=== PATIENT | male | born 1955 | race Caucasian/White ===

== ENCOUNTER 2019-03-10 13:01 | Inpatient (IN) ==
[2019-03-10 13:26] LABS: POC Blood Urea Nitrogen 77 mg/dl (8-23); POC CO2 20 mmol/L (22-30); POC Calcium, Ionized 1.19 mmol/L (1.16-1.32); POC Chloride 104 mmol/L (96-108); POC Creatinine 2.1 mg/dl (0.7-1.2); POC Glucose, Random 251 mg/dL (70-105); POC Potassium 4.7 mmol/L (3.3-5.1); POC Sodium 135 mmol/L (133-145)
[2019-03-10] MEDS ORDERED: 0.9 % SODIUM CHLORIDE 1,000 ML IV ONE (13:35)
--- NOTE | 2019-03-10 13:36 | Emergency Department Note ---
Weakness HPI - General Chief complaint: Weakness Stated complaint: acute renal failure, not feeling well, mild SOB Time Seen by Provider: 03/10/19 13:04 Source: patient Mode of arrival: ambulatory Limitations: no limitations - History of Present Illness HPI Narrative: 63-year-old male referred over by Dr. Garcia for increased weakness over the past 2 weeks. He was most concerned about the kidney function he had tried to call nephrology but they were apparently out at lunch but he would like to have this patient evaluated and consulted by the mechanotherapist. He had done some blood work today and today the creatinine has increased up to 1.9 and he has had a splenic replacement 2 weeks ago at [facility] patient states that since that time he is continued to have weakness had increased even as of yesterday. He was seen at the clinic and Dr. Mcdonough had ordered a CBC the CHEM panel and brought him over for evaluation because of the rising creatinine. Patient has had no syncope episodes. She denies any chest pain although he states he has had continued heaviness over the past several weeks. Patient has had a history of stents in the past as well as a CABG procedure. Patient continues smoking. He has not been back to see the lock and dam operator who put the pacemaker in did see his primary care provider today who brought him over for further evaluation. Chest x-ray was performed which was read as negative by Dr. Roblero the CBC showed 9300 with a hemoglobin of 14.8 hematocrit of 44.4 BUN was elevated at 72 the creatinine 1.9 sodium is 134 and a potassium 5.0 liver function test are normal CO2 is 21Temperature 97.5 the pulse is 60 the respirations are 18 blood pressure 110/60 pulse ox is reading at 96% on room air he states he has a 0/10 pain his Accu-Chek is 228 - Related Data Home Medications Medication Instructions Recorded Confirmed glucometer test strips NOTAPPLIC 04/05/15 03/10/19 aspirin 81 mg tablet,delayed 81 mg PO QDAY 05/27/16 03/10/19 release clopidogrel 75 mg tablet 75 mg PO QDAY 03/03/18 03/10/19 spironolactone 25 mg tablet 25 mg PO QDAY tab 02/19/19 03/10/19 insulin aspart (U-100) 100 unit/mL 10 unit SUB-Q TID ml 03/10/19 03/10/19 (3 mL) subcutaneous pen Previous Rx's Medication Instructions Recorded bisoprolol fumarate 5 mg tablet 10 mg PO QDAY #120 tab 08/15/16 nitroglycerin 0.4 mg sublingual 0.4 mg SUBLINGUAL Q5MIN PRN #100 08/15/16 tablet tab lisinopril 20 mg tablet 20 mg PO QDAY #120 tab 06/27/17 glucagon (human recombinant) 1 mg 1 mg SUB-Q ONCE PRN #1 each 07/14/17 injection kit pen needle, diabetic 32 gauge x See Dose Instructions .ROUTE 07/14/17" .MEDSUPPLY #30 each albuterol sulfate HFA 90 2 puff INHALATION .Q4-6H PRN #8.5 g 12/03/17 mcg/actuation aerosol inhaler atorvastatin 80 mg tablet 80 mg PO QDAY #90 tab 03/09/18 furosemide 40 mg tablet 40 mg PO QDAY #60 tab 05/01/18 ezetimibe 10 mg tablet 10 mg PO QDAY #30 tab 06/04/18 clonazepam 1 mg tablet 1 mg PO BID PRN #45 tab 12/08/18 insulin glargine (U-100) 100 30 unit SUB-Q QDAY #15 ml 02/17/19 unit/mL (3 mL) subcutaneous pen cholecalciferol (vitamin D3) 2,000 2,000 unit PO QDAY #90 cap 02/19/19 unit capsule buspirone 5 mg tablet 5 mg PO BID #60 tab 03/10/19 Allergies Allergy/AdvReac Type Severity Reaction Status Date / Time No Known Drug Allergies Allergy Verified 03/10/19 13:05 Review of Systems All systems ED: reviewed and negative except as stated. Constitutional: Denies: fever, chills Cardiovascular: Denies: chest pain Respiratory: Reports: as per HPI Gastrointestinal: Denies: abdominal pain Genitourinary: Denies: dysuria, frequency Musculoskeletal: Denies: back pain Integumentary: Denies: rash, lesions Neurological: Reports: weakness. Denies: headache Endocrine: Reports: fatigue Past Medical History - Past Medical History PMF Narrative: All Active Problems (Last Reviewed 03/10/19 @ 07:57 by Aaron Anderson MD, FAAFP) Needs smoking cessation education (Acute) Chronic pancreatitis (Acute) Carotid artery disease (Acute) PVD (peripheral vascular disease) (Acute) CHF (congestive heart failure) (Acute) Gastroesophageal reflux disease (Chronic) Abdominal pain (Chronic) Generalized anxiety disorder (Chronic) Lymphocytic-plasmacytic colitis (Chronic) Acute gastroenteritis (Chronic) Hypercholesteremia (Chronic 11/20/11) Hyperlipidemia (Chronic) Hypertension (Chronic) Insomnia (Chronic) Myocardial infarction acute (Chronic) Myocardial infarction, old (Chronic) History of noncompliance with medical treatment (Chronic 08/05/13) Diabetes mellitus, type II (Chronic) Depressive disorder (Chronic) Pain, dental (Chronic) Chronic obstructive pulmonary disease (Chronic) Chest pain (Chronic) CAD (coronary artery disease) (Chronic) BPH without urinary obstruction (Chronic) Abnormal electrocardiogram (Chronic) Osteoarthritis (Chronic) Tobacco abuse (Chronic 10/28/11) History of coronary artery stent placement (Chronic) History of colonoscopy (Chronic 07/26/15) Hx of coronary artery bypass graft (Chronic) ST elevation myocardial infarction (STEMI) involving left circumflex coronary artery with complication (Chronic) Past Surgical History (Last Reviewed 03/10/19 @ 07:57 by Aaron Anderson MD, FAAFP) History of coronary artery stent placement (Chronic) History of colonoscopy (Chronic 07/26/15) Hx of coronary artery bypass graft (Chronic) Family History (Last Reviewed 03/10/19 @ 07:57 by Aaron Anderson MD, FAAFP) Mother Alzheimer's disease Malignant neoplasm of breast Glaucoma Osteoarthritis Brother Diabetes mellitus Acute myocardial infarction Cardiac disease Essential hypertension Sister Diabetes mellitus Father/49 Acute myocardial infarction Medical history: Reports: arthritis, COPD, CAD (coronary artery disease), DM, hyperlipidemia, hypertension, other Surgical history ED: Reports: coronary bypass (CABG) - Social History smoking status: Current some day smoker Alcohol use: Reports: None Drug use: Reports: marijuana Physical Exam Limitations: no limitations General appearance: alert Head: atraumatic, normocephalic Eye: Present: normal appearance ENT: normal exam, normal oropharynx, mucous membranes moist Neck: Present: normal inspection, full ROM Chest: Present: normal inspection, symmetric chest wall rise. Absent: tenderness Respiratory: Present: normal lung sounds bilaterally. Absent: respiratory distress, rales/crackles, wheezes Cardiovascular: Present: regular rate, normal rhythm. Absent: bradycardia, tachycardia Abdominal: Present: soft, distention, normal bowel sounds. Absent: tenderness, guarding, rebound, rigidity Extremities: Present: normal inspection, full ROM Back: Present: normal inspection, full ROM. Absent: tenderness Patient oriented to: Present: person, place, time Speech: Present: fluid speech Cranial nerves: EOM function (II, III, IV, ): Normal, facial sensation (V): Normal, facial palsy (VII): Normal, gag reflex (IX): Normal, spinal accessory function (XI): Normal, tongue deviation (XII): Normal Cerebellar function: normal gait Motor strength - LUE: 5/5 Motor strength - RUE: 5/5 Motor strength - LLE: 5/5 Motor strength - RLE: 5/5 Upper motor neuron exam: Babinski sign: Absent bilaterally Sensory exam upper extremity: Normal: light touch Sensory exam lower extremity: Normal: light touch DTR: 2+: patellar (L), patellar (R) Coma Scale Eye Opening: Spontaneous Coma Scale Motor Response: Obeys Commands Coma Scale Verbal Response: Oriented Coma Scale Total: 15 Course Vital Signs Temperature 97.5 F 03/10/19 13:02 Pulse Rate 60 03/10/19 13:02 Respiratory Rate 18 03/10/19 13:02 Blood Pressure 100/62 03/10/19 13:02 Pulse Oximetry (%) 96 03/10/19 13:02 Temperature 97.5 F 03/10/19 13:02 Pulse Rate 54 L 03/10/19 15:16 Respiratory Rate 20 03/10/19 15:16 Blood Pressure 72/44 03/10/19 15:16 Pulse Oximetry (%) 96 03/10/19 15:16 Weakness - MDM Narrative Medical decision making narrative: Is 8200 to hemoglobin 15.0 hematocrit of 45.0 lactic acid is 0.8 sodium is 135 the potassium 4.7 the CO2 is 20 the BUN is 77 the creatinine 2.1 glucose is 254 troponin less than 0.01 BNP is 395Dr David, neurologist has been contacted at [phone] and he will consult on the patient. Dr. Anderson attempted to contact mechanotherapist but was unavailable at that particular time. He recommended that we asked with the consult after the patient is admitted to the hospitalist.Patient given some IV fluids as his pressure did drop down to the 97 systolic region. His chest x-ray no CHf.Records indicate that a renal ultrasound was performed on 03/03/[address] mass [address] Dr Blake contacted and pt to be admitted - Lab Data Result diagrams: 03/10/19 13:17 03/10/19 13:17 Lab Results 03/10/19 03/10/19 03/10/19 Range/Units 13:17 13:17 13:17 WBC 8.2 (4.5-11.0) K/mcL RBC 4.90 (4.50-5.90) M/mcL Hgb 15.0 (13.5-16.5) g/dL Hct 45.0 (41.0-55.0) % POC Hct 44.0 (41.0-55.0) % MCV 91.8 (80.0-100.0) fL MCH 30.7 (26.0-34.0) pg MCHC 33.4 (31.0-36.0) g/dL RDW 13.4 (11.5-14.5) % Plt Count 155 (140-440) K/mcL MPV 9.4 (7.4-10.4) fL Gran % 54.8 (38.0-78.0) % Lymph % (Auto) 31.4 (15.5-49.0) % [place] % (Auto) 10.3 (1.0-12.0) % Eos % (Auto) 3.0 (0.0-7.0) % Baso % (Auto) 0.5 (0.0-2.0) % Gran # 4.5 (1.8-8.0) K/mcL Lymph # (Auto) 2.6 (1.5-4.8) K/mcL [place] # (Auto) 0.8 (0.1-0.9) K/mcL Eos # (Auto) 0.2 (0.0-0.7) K/mcL Baso # (Auto) 0 (0.0-0.3) K/mcL VBG Lactic Acid (0.5-2.0) mmol/L POC Sodium 135 (133-145) mmol/L Sodium 135 (133-145) mmol/L POC Potassium 4.7 (3.3-5.1) mmol/L Potassium 4.7 (3.3-5.1) mmol/L POC Chloride 104 (96-108) mmol/L Chloride 100 (96-108) mmol/L Carbon Dioxide 18 L (22-30) mmol/L POC Total CO2 20 L (22-30) mmol/L Anion Gap 17.0 H (8-16) POC BUN 77 H (8-23) mg/dl BUN 73 H (8-23) mg/dl Creatinine 2.1 H (0.7-1.2) mg/dl POC Creatinine 2.1 H (0.7-1.2) mg/dl GFR Calculation 33 Glucose 254 H (70-105) mg/dL POC Glucose 251 H (70-105) mg/dL Calcium 9.7 (8.6-10.4) mg/dl POC WB Ioniz Calcium 1.19 (1.16-1.32) mmol/L Total Bilirubin 0.4 (0.0-1.0) mg/dL AST 14 (0-37) U/l ALT 23 (0-40) U/l Alkaline Phosphatase 109 (39-117) U/L Total Creatine Kinase 45 (24-195) IU/L CK-MB (CK-2) 2.5 (0-4.9) ng/ml Myoglobin 33 (28-72) ng/ml Troponin T < 0.01 (0-0.03) ng/ml NT-Pro-B Natriuret Pep (0-125) pg/ml Total Protein 7.2 (5.9-8.4) gm/dL Albumin 4.3 (3.2-5.2) gm/dL Globulin 2.9 (2.2-3.7) gm/dL Albumin/Globulin Ratio 1.5 (1.0-2.3) Urine Color Urine Appearance Urine pH (5.0-9.0) Ur Specific [place] (1.000-1.035) Urine Protein (NEG) mg/dL Urine Glucose (UA) (NEG) mg/dL Urine Ketones (NEG) mg/dL Urine Occult Blood (<0.03) mg/dL Urine Nitrate (NEG) Urine Bilirubin (NEG) mg/dL Urine Urobilinogen (NEG) mg/dL Ur Leukocyte Esterase (NEG) /uL Urine RBC (0-1) /hpf Urine WBC (0-4) /hpf Ur Squamous Epith Cells (0-4) /hpf Urine Bacteria (0) /hpf Hyaline Casts (0-2) /lpf Urine Mucus (0) /hpf Ur Culture Indicated? 03/10/19 03/10/19 03/10/19 Range/Units 13:17 13:37 14:11 WBC (4.5-11.0) K/mcL RBC (4.50-5.90) M/mcL Hgb (13.5-16.5) g/dL Hct (41.0-55.0) % POC Hct (41.0-55.0) % MCV (80.0-100.0) fL MCH (26.0-34.0) pg MCHC (31.0-36.0) g/dL RDW (11.5-14.5) % Plt Count (140-440) K/mcL MPV (7.4-10.4) fL Gran % (38.0-78.0) % Lymph % (Auto) (15.5-49.0) % [place] % (Auto) (1.0-12.0) % Eos % (Auto) (0.0-7.0) % Baso % (Auto) (0.0-2.0) % Gran # (1.8-8.0) K/mcL Lymph # (Auto) (1.5-4.8) K/mcL [place] # (Auto) (0.1-0.9) K/mcL Eos # (Auto) (0.0-0.7) K/mcL Baso # (Auto) (0.0-0.3) K/mcL VBG Lactic Acid 0.8 (0.5-2.0) mmol/L POC Sodium (133-145) mmol/L Sodium (133-145) mmol/L POC Potassium (3.3-5.1) mmol/L Potassium (3.3-5.1) mmol/L POC Chloride (96-108) mmol/L Chloride (96-108) mmol/L Carbon Dioxide (22-30) mmol/L POC Total CO2 (22-30) mmol/L Anion Gap (8-16) POC BUN (8-23) mg/dl BUN (8-23) mg/dl Creatinine (0.7-1.2) mg/dl POC Creatinine (0.7-1.2) mg/dl GFR Calculation Glucose (70-105) mg/dL POC Glucose (70-105) mg/dL Calcium (8.6-10.4) mg/dl POC WB Ioniz Calcium (1.16-1.32) mmol/L Total Bilirubin (0.0-1.0) mg/dL AST (0-37) U/l ALT (0-40) U/l Alkaline Phosphatase (39-117) U/L Total Creatine Kinase (24-195) IU/L CK-MB (CK-2) (0-4.9) ng/ml Myoglobin (28-72) ng/ml Troponin T (0-0.03) ng/ml NT-Pro-B Natriuret Pep 395.9 H (0-125) pg/ml Total Protein (5.9-8.4) gm/dL Albumin (3.2-5.2) gm/dL Globulin (2.2-3.7) gm/dL Albumin/Globulin Ratio (1.0-2.3) Urine Color Straw Urine Appearance Clear Urine pH 6.0 (5.0-9.0) Ur Specific [place] 1.010 (1.000-1.035) Urine Protein Neg (NEG) mg/dL Urine Glucose (UA) Negative (NEG) mg/dL Urine Ketones Neg (NEG) mg/dL Urine Occult Blood Neg (<0.03) mg/dL Urine Nitrate Neg (NEG) Urine Bilirubin Neg (NEG) mg/dL Urine Urobilinogen Neg (NEG) mg/dL Ur Leukocyte Esterase Neg (NEG) /uL Urine RBC < 1 (0-1) /hpf Urine WBC < 1 (0-4) /hpf Ur Squamous Epith Cells < 1 (0-4) /hpf Urine Bacteria 0 (0) /hpf Hyaline Casts 1 (0-2) /lpf Urine Mucus Few (0) /hpf Ur Culture Indicated? No Disposition Pt seen by PSYCHIATRY PHYSICIAN/PA only: No Clinical Impression: Elevated serum creatinine, Weakness Disposition: Xfer As Inpt ([facility]) Condition: Fair Referrals: Aaron Anderson MD, FAAFP [Primary Care Provider] -
[2019-03-10 13:45] LABS: Basophils # (Auto) 0 K/mcL (0.0-0.3); Basophils % (Auto) 0.5 % (0.0-2.0); Eosinophils # (Auto) 0.2 K/mcL (0.0-0.7); Granulocytes % (Auto) 54.8 % (38.0-78.0); Lymphocytes # (Auto) 2.6 K/mcL (1.5-4.8); Lymphocytes % (Auto) 31.4 % (15.5-49.0); Mean Cell Volume 91.8 fL (80.0-100.0); Mean Corpuscular HGB Conc 33.4 g/dL (31.0-36.0); Mean Platelet Volume 9.4 fL (7.4-10.4); Monocytes # (Auto) 0.8 K/mcL (0.1-0.9); Monocytes % (Auto) 10.3 % (1.0-12.0); Platelet Count 155 K/mcL (140-440); Red Cell Distribution Width 13.4 % (11.5-14.5); WBC 8.2 K/mcL (4.5-11.0)
[2019-03-10 14:05] LABS: Creatine Kinase MB 2.5 ng/ml (0-4.9); Myoglobin 33 ng/ml (28-72)
[2019-03-10 14:09] LABS: ALT/SGPT 23 U/l (0-40); AST/SGOT 14 U/l (0-37); Albumin 4.3 gm/dL (3.2-5.2); Albumin/Globulin Ratio 1.5 (1.0-2.3); Alkaline Phosphatase 109 U/L (39-117); Bilirubin,Total 0.4 mg/dL (0.0-1.0); Blood Urea Nitrogen 73 mg/dl (8-23); Calcium 9.7 mg/dl (8.6-10.4); Carbon Dioxide 18 mmol/L (22-30); Chloride 100 mmol/L (96-108); Creatine Kinase 45 IU/L (24-195); Globulin 2.9 gm/dL (2.2-3.7); Glomerular Filtration Rate 33; Glucose 254 mg/dL (70-105); Potassium 4.7 mmol/L (3.3-5.1); Sodium 135 mmol/L (133-145)
[2019-03-10 15:17] LABS: Appearance,Urine CLEAR; Bacteria,Urine 0 /hpf (0); Bilirubin,Urine NEG (NEG); Color,Urine STRAW; Culture Indicated,Urine NO; Glucose,Urine (UA) NEGATIVE (NEG); Ketones,Urine NEG (NEG); Leukocyte Esterase,Urine NEG /uL (NEG); Mucus,Urine FEW /hpf (0); Nitrate,Urine NEG (NEG); Protein,Urine NEG (NEG); Urine Blood NEG mg/dL (<0.03); Urine Hyaline Cast 1 /lpf (0-2); Urine RBC < 1 /hpf (0-1); Urine Squamous Epithelial Cell < 1 /hpf (0-4); Urine WBC < 1 /hpf (0-4); Urobilinogen,Urine NEG (NEG)
--- NOTE | 2019-03-10 15:54 | Internal Med History&Physical ---
Medical - H&P: [facility] Patient information: Note initiated : 03/10/19 at 3:49 pm Service Date, if different from initiated Date: [] Patient: Sumit Baumann a 63 y/o M admitted on for acute renal failure, not feeling well, mild SOB. Chief Complaint: [] History of present illness: Mr. Baumann is a 63 year old M Resents the ED sent in by his primary care provider for elevated BUN/creatinine and weakness. Patient states past couple weeks he has been progressively weak and especially the past few days feels like he hardly get up he is exhausted after walking 15 feet has lightheadedness headache. Has some stomach queasiness almost the nausea. No vomiting. No chest pain. No fevers or chills or diarrhea. States he tries to drink a lot 2-3 propel bottles a day plus water. He states his blood pressure typically runs 100/?. But yesterday said his blood pressure was running 60/40. He has chronic dyspnea but worse over the past couple days. He had a defibrillator placed several weeks at [facility]. The only medication change she notes over the past 2 months his lisinopril from 20-30. Also takes spironolactone and furosemide as well as bisoprolol. In the ED initial blood pressure was 162 lowest blood pressure was 82/60. Start IV fluid hydration on arrival parcel post order clerk was contacted. Patient's creatinine was 2.1. Lactate proBNP and troponin were okay and chest x-ray unremarkable. Review of Systems: Pertinent positives as above. Denies fever/chills/vomiting/chest or abdominal pain/diarrhea. Many 10 point review of systems reviewed negative Medical - H&P: PM Medical history: Medical History (Last Reviewed 03/10/19 @ 07:57 by Aaron Anderson MD, FAAFP) CHF (congestive heart failure) (Acute) Gastroesophageal reflux disease (Chronic) Abdominal pain (Chronic) Generalized anxiety disorder (Chronic) Lymphocytic-plasmacytic colitis (Chronic) Acute gastroenteritis (Chronic) Hypercholesteremia (Chronic 11/20/11) Hyperlipidemia (Chronic) Hypertension (Chronic) Insomnia (Chronic) Myocardial infarction acute (Chronic) Myocardial infarction, old (Chronic) History of noncompliance with medical treatment (Chronic 08/05/13) Diabetes mellitus, type II (Chronic) Depressive disorder (Chronic) Pain, dental (Chronic) Chronic obstructive pulmonary disease (Chronic) Chest pain (Chronic) CAD (coronary artery disease) (Chronic) BPH without urinary obstruction (Chronic) Abnormal electrocardiogram (Chronic) Osteoarthritis (Chronic) Tobacco abuse (Chronic 10/28/11) ST elevation myocardial infarction (STEMI) involving left circumflex coronary artery with complication (Chronic) Past Surgical History (Last Reviewed 03/10/19 @ 07:57 by Aaron Anderson MD, FAAFP) History of coronary artery stent placement (Chronic) History of colonoscopy (Chronic 07/26/15) Hx of coronary artery bypass graft (Chronic) Defibrillator placed several weeks ago Family History (Last Reviewed 03/10/19 @ 07:57 by Aaron Anderson MD, FAAFP) Mother Alzheimer's disease Malignant neoplasm of breast Glaucoma Osteoarthritis Brother Diabetes mellitus Acute myocardial infarction Cardiac disease Essential hypertension Sister Diabetes mellitus Father/49 Acute myocardial infarction Social History (Last Updated 03/10/19 @ 08:18 by Aaron Anderson MD, FAAFP) Has cut back on smoking and is now down to 1 cigarette a week Denies alcohol use or drug use, lives at home with family Medical - H&P: Meds Home Medications Medication Instructions Recorded Confirmed Type glucometer test strips NOTAPPLIC 04/05/15 03/10/19 History aspirin 81 mg tablet,delayed 81 mg PO QDAY 05/27/16 03/10/19 History release bisoprolol fumarate 5 mg tablet 10 mg PO QDAY #120 tab 08/15/16 03/10/19 Rx nitroglycerin 0.4 mg sublingual 0.4 mg SUBLINGUAL Q5MIN PRN #100 08/15/16 03/10/19 Rx tablet tab lisinopril 20 mg tablet 20 mg PO QDAY #120 tab 06/27/17 03/10/19 Rx glucagon (human recombinant) 1 mg 1 mg SUB-Q ONCE PRN #1 each 07/14/17 03/10/19 Rx injection kit pen needle, diabetic 32 gauge x See Dose Instructions .ROUTE 07/14/17 03/10/19 Rx 5/32" .MEDSUPPLY #30 each albuterol sulfate HFA 90 2 puff INHALATION .Q4-6H PRN #8.5 g 12/03/17 03/10/19 Rx mcg/actuation aerosol inhaler clopidogrel 75 mg tablet 75 mg PO QDAY 03/03/18 03/10/19 History atorvastatin 80 mg tablet 80 mg PO QDAY #90 tab 03/09/18 03/10/19 Rx furosemide 40 mg tablet 40 mg PO QDAY #60 tab 05/01/18 03/10/19 Rx ezetimibe 10 mg tablet 10 mg PO QDAY #30 tab 06/04/18 03/10/19 Rx clonazepam 1 mg tablet 1 mg PO BID PRN #45 tab 12/08/18 03/10/19 Rx insulin glargine (U-100) 100 30 unit SUB-Q QDAY #15 ml 02/17/19 03/10/19 Rx unit/mL (3 mL) subcutaneous pen cholecalciferol (vitamin D3) 2,000 2,000 unit PO QDAY #90 cap 02/19/19 03/10/19 Rx unit capsule spironolactone 25 mg tablet 25 mg PO QDAY tab 02/19/19 03/10/19 History buspirone 5 mg tablet 5 mg PO BID #60 tab 03/10/19 03/10/19 Rx insulin aspart (U-100) 100 unit/mL 10 unit SUB-Q TID ml 03/10/19 03/10/19 History (3 mL) subcutaneous pen Allergies Allergy/AdvReac Type Severity Reaction Status Date / Time No Known Drug Allergies Allergy Verified 03/10/19 13:05 Medical - H&P: Exam - Constitutional Vitals: Temp Pulse Resp BP Pulse Ox 97.5 F 54 L 20 72/44 96 03/10/19 13:02 03/10/19 15:16 03/10/19 15:16 03/10/19 15:16 03/10/19 15:16 Exam: General: Alert, Awake, No acute Distress Eyes/N/T: EOMI, PEERL, DMM Head/Neck: neck supple, normocephalic atraumatic CV: Mildly bradycardic but regular, No murmurs, normal s1/s2 Pulm: Clear b/l, no wheezing/rhonchi/rales Abd: soft, nontender, +BS x4 Ext: no clubbing/cyanosis/edema Neuro: Alert, no focal deficits, moves all extremities, CN 2-12 grossly intact, symmetrical strength b/l upper/lower, sensations intact b/l upper/lower Skin: warm/dry Medical - H&P: Reslt - Labs CBC & Chem 7: 03/10/19 13:17 03/10/19 13:17 Labs: Short CBC 03/10/19 Range/Units 13:17 WBC 8.2 (4.5-11.0) K/mcL Hgb 15.0 (13.5-16.5) g/dL Hct 45.0 (41.0-55.0) % Plt Count 155 (140-440) K/mcL BMP 03/10/19 13:17 Sodium 135 Potassium 4.7 Chloride 100 Carbon Dioxide 18 L BUN 73 H Creatinine 2.1 H Glucose 254 H Calcium 9.7 Cardiac Enzymes 03/10/19 03/10/19 Range/Units 13:17 13:17 Total Creatine Kinase 45 (24-195) IU/L CK-MB (CK-2) 2.5 (0-4.9) ng/ml Troponin T < 0.01 (0-0.03) ng/ml Liver Function 03/10/19 Range/Units 13:17 Total Bilirubin 0.4 (0.0-1.0) mg/dL AST 14 (0-37) U/l ALT 23 (0-40) U/l Alkaline Phosphatase 109 (39-117) U/L Albumin 4.3 (3.2-5.2) gm/dL Urine 03/10/19 Range/Units 14:11 Urine Color Straw Urine Appearance Clear Urine pH 6.0 (5.0-9.0) Ur Specific [place] 1.010 (1.000-1.035) Urine Protein Neg (NEG) mg/dL Urine Glucose (UA) Negative (NEG) mg/dL - Impressions Chest x-ray unremarkable Medical - H&P: A/P - Narrative A/P Narrative: A: *NASIR on CKD: 2/2 medications *Hypotension: 2/2 meds *Volume depletion: *Gen weakness: 2/2 above *DM w/hyperglycemia: *HTN/HLD: *CAD w/Stents & CABGx6: follows with Drs. 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%, grade II diastolic), diminished RV systolic fxn: *Tobacco abuse *Anxiety: *COPD(not on home O2) * P: -gentle IVF's -monitor fluid balance closely -Nephrology following -Hold BP meds and decrease upon d/c -hold diuretics and decrease upon d/c -cont ASA/Statin -SSI and basal insulin - -Smoking cessation counseling -ppx: Heparin full Code
[2019-03-10] MEDS ORDERED: LACTULOSE 20 GM/30 ML ORAL.SOL PO PRN (16:56)
[2019-03-10] MEDS ORDERED: 0.9 % SODIUM CHLORIDE 1,000 ML IV SCH (16:56)
[2019-03-10] MEDS ORDERED: DEXTROSE 31 GM ORAL.SUSP PO PRN (16:56)
[2019-03-10] MEDS ORDERED: PROCHLORPERAZINE 10 MG/2 ML VIAL IV PRN (16:56)
[2019-03-10] MEDS ORDERED: POTASSIUM CHLORIDE 40 MEQ in DEXTROSE 5% IN WATER 500 ML IV PRN (16:56)
[2019-03-10] MEDS ORDERED: POLYETHYLENE GLYCOL 3350 17 GM PACKET PO PRN (16:56)
[2019-03-10] MEDS ORDERED: DEXTROSE 50% 50 ML VIAL IV PRN (16:56)
[2019-03-10] MEDS ORDERED: ACETAMINOPHEN 325 MG TABLET PO PRN (16:56)
[2019-03-10] MEDS ORDERED: SENNOSIDES 1 TABLET PO PRN (16:56)
[2019-03-10] MEDS ORDERED: ONDANSETRON 4 MG/2 ML VIAL IV PRN (16:56)
[2019-03-10] MEDS ORDERED: POTASSIUM CHLORIDE 20 MEQ TABLET PO PRN ×2 (16:56)
[2019-03-10] MEDS ORDERED: IPRATROPIUM/ALBUTEROL 3 ML AMPUL.NEB NEB PRN (16:56)
[2019-03-10] MEDS ORDERED: MAGNESIUM SULFATE 2 GM/50 ML BAG IV PRN (16:56)
[2019-03-10] MEDS: INSULIN LISPRO 1 UNIT/0.01 ML UNIT SQ SCH ×2 (17:10→20:53)
--- NOTE | 2019-03-10 17:22 | Nephrology History & Physical ---
History of Present Illness Patient information: Note initiated : 03/10/19 at 5:20 pm Service Date, if different from initiated Date: [] Patient: Sumit Baumann a 63 y/o M admitted on 03/10/19 for acute renal failure, not feeling well, mild SOB. Chief Complaint: [] Chief complaint: Weakness since recent AICD placement HPI: Mr. Baumann is a 63 year old M who was seen in renal and HTN clinic on 02/19/[address] Browne. He has T2DM and CKD3. SCr at that visit was 1.1 mg/dl but had been as high as 2.2 in Apr 2018 with persistent elevation until his most resent visit with Dr Mariscal in late January of this year. At that time his 136/88 and HR 68/min. Because of an ill defined mass seen in the right upper pole on an U/S of 06/2018, he has been followed with serial U/S and MRI recommended but can't be done now due to the recent AICD placement. His kidneys have increased echogenicity but there is no proteinuria to suggest DM nephropathy. [facility] U/A's, normal ualb/Cr raio and ELIZABETH negative. Planned 6 mo F/U for CKD 2 Echo in 2015 revealed LVEF 30% with an ischemic cardiomyopathy with prior CABG and subsequent PTCI. He was on Bisprolol, ACEi, Lasix and aldactone DM treated with lantus and humalog. 2 weeks ago he had an AICD placed and has been fatigued since then. There was an increase in ACEi to lisinopril 30 mg/day. Today he has seen and noted to have a BP 98/53 with pulse 60/min. BP improved with 1 L NS and holding all Rx. Pancultured but no fever or leukocytosis to suggest sepsis Labs reviewed ARF secondary to Acute Prerenal Azotemia (CO= HR x SV so bradycardia (bistolic) and ACEi (increased) lead to renal hypoperfusion. If this is correct, expect improved GFR and Hemodynamics within 72 hr. Review of Systems All systems PM: reviewed and no additional remarkable complaints except as stated Constitutional: as per HPI, fatigue, no fever(s) Nose, mouth and throat: as per HPI Breasts: pain Breasts: left: gynecomastia (on aldactone) Cardiovascular: as per HPI, lightheadedness, slow heart rate, no chest pain, no diaphoresis, no edema, no orthopnea, no palpatations, no pedal edema Respiratory: as per HPI Gastrointestinal: as per HPI Genitourinary: as per HPI Musculoskeletal: as per HPI Integumentary: as per HPI Neurological: as per HPI Psychiatric: as per HPI Endocrine: fatigue Hematologic/Lymphatic: easy bruising Past History Past medical history: Medical History (Last Reviewed 03/10/19 @ 07:57 by Aaron Anderson MD, FAA) CHF (congestive heart failure) (Acute) Gastroesophageal reflux disease (Chronic) Abdominal pain (Chronic) Generalized anxiety disorder (Chronic) Lymphocytic-plasmacytic colitis (Chronic) Acute gastroenteritis (Chronic) Hypercholesteremia (Chronic 11/20/11) Hyperlipidemia (Chronic) Hypertension (Chronic) Insomnia (Chronic) Myocardial infarction acute (Chronic) Myocardial infarction, old (Chronic) History of noncompliance with medical treatment (Chronic 08/05/13) Diabetes mellitus, type II (Chronic) Depressive disorder (Chronic) Pain, dental (Chronic) Chronic obstructive pulmonary disease (Chronic) Chest pain (Chronic) CAD (coronary artery disease) (Chronic) BPH without urinary obstruction (Chronic) Abnormal electrocardiogram (Chronic) Osteoarthritis (Chronic) Tobacco abuse (Chronic 10/28/11) ST elevation myocardial infarction (STEMI) involving left circumflex coronary artery with complication (Chronic) Past Surgical History (Last Reviewed 03/10/19 @ 07:57 by Aaron Anderson MD, FAAFP) History of coronary artery stent placement (Chronic) History of colonoscopy (Chronic 07/26/15) Hx of coronary artery bypass graft (Chronic) Defibrillator placed several weeks ago Family History (Last Reviewed 03/10/19 @ 07:57 by Aaron Anderson MD, FAAFP) Mother Alzheimer's disease Malignant neoplasm of breast Glaucoma Osteoarthritis Brother Diabetes mellitus Acute myocardial infarction Cardiac disease Essential hypertension Sister Diabetes mellitus Father/49 Acute myocardial infarction Social History (Last Updated 03/10/19 @ 08:18 by Aaron Anderson MD, FAAFP) Has cut back on smoking and is now down to 1 cigarette a week Denies alcohol use or drug use, lives at home with family Medications and Allergies Home Medications Medication Instructions Recorded Confirmed Type glucometer test strips NOTAPPLIC 04/05/15 03/10/19 History aspirin 81 mg tablet,delayed 81 mg PO QDAY 05/27/16 03/10/19 History release bisoprolol fumarate 5 mg tablet 10 mg PO QDAY #120 tab 08/15/16 03/10/19 Rx nitroglycerin 0.4 mg sublingual 0.4 mg SUBLINGUAL Q5MIN PRN #100 08/15/16 03/10/19 Rx tablet tab lisinopril 20 mg tablet 20 mg PO QDAY #120 tab 06/27/17 03/10/19 Rx glucagon (human recombinant) 1 mg 1 mg SUB-Q ONCE PRN #1 each 07/14/17 03/10/19 Rx injection kit pen needle, diabetic 32 gauge x See Dose Instructions .ROUTE 07/14/17 03/10/19 Rx 5/32" .MEDSUPPLY #30 each clopidogrel 75 mg tablet 75 mg PO QDAY 03/03/18 03/10/19 History atorvastatin 80 mg tablet 80 mg PO QDAY #90 tab 03/09/18 03/10/19 Rx furosemide 40 mg tablet 40 mg PO QDAY #60 tab 05/01/18 03/10/19 Rx ezetimibe 10 mg tablet 10 mg PO QDAY #30 tab 06/04/18 03/10/19 Rx clonazepam 1 mg tablet 1 mg PO BID PRN #45 tab 12/08/18 03/10/19 Rx insulin glargine (U-100) 100 30 unit SUB-Q QDAY #15 ml 02/17/19 03/10/19 Rx unit/mL (3 mL) subcutaneous pen cholecalciferol (vitamin D3) 2,000 2,000 unit PO QDAY #90 cap 02/19/19 03/10/19 Rx unit capsule spironolactone 25 mg tablet 25 mg PO QDAY tab 02/19/19 03/10/19 History Basaglar Kwikpen U-100 30 units SQ DAILY 03/10/19 03/10/19 History buspirone 5 mg tablet 5 mg PO BID #60 tab 03/10/19 03/10/19 Rx insulin aspart (U-100) 100 unit/mL 10 unit SUB-Q TID ml 03/10/19 03/10/19 History (3 mL) subcutaneous pen Allergies Allergy/AdvReac Type Severity Reaction Status Date / Time No Known Drug Allergies Allergy Verified 03/10/19 13:05 Exam - Vital Signs Vital signs: Temp Pulse Resp BP Pulse Ox 97.2 F 66 22 145/58 97 03/10/19 17:05 03/10/19 16:52 03/10/19 17:05 03/10/19 17:05 03/10/19 17:05 - General Appearance General appearance: well-developed, well-nourished, appears started age EENT: ATNC, PERRL Neck: no JVD, no thyromegaly, no carotid bruit Respiratory: no kyphosis, no scoliosis Cardiology: no murmurs, no rub, rub, no gallops, no edema, regular rate (Slow and no pacemaker spikes) Gastrointestinal: normoactive bowel sounds, no tenderness, no guarding, no organomegaly Integumentary: no rash, warm and dry Neurologic: no focal deficit, no asterixis, alert and oriented x3, strength 5/5, CN 3-12 intact Musculoskeletal: no deformities, no cyanosis, no clubbing Psychiatric: mood/affect appropriate Results - Lab Results 03/10/19 13:17 03/10/19 13:17 Most recent lab results Calcium 9.7 mg/dl (8.6-10.4) 03/10/19 13:17 Laboratory Tests 08/12/17 12/08/17 03/10/18 10:07 13:54 08:23 Creatinine 1.1 1.1 1.0 03/11/18 04/13/18 04/21/18 17:00 07:37 07:19 Creatinine 1.2 2.2 H* 1.6 H 08/18/18 02/15/19 03/10/19 15:32 07:13 08:26 Creatinine 1.4 H 1.1 1.9 H 03/10/19 13:17 Creatinine 2.1 H - Image Kidney/bladder ultrasound: report reviewed (ill defined right upper pole mass. Echogenic kideys.) Assessment and Plan (1) Acute prerenal azotemia 1. No B-blockers 2. Seems volume replete so no more IVF 3. Tomorrow troy;l start short acting ACEi 4. Replace aldactone with Eperlenone due to gynecomastia and left nipple pain 5. Would like a back-up PPM prior too restarting minidose carvedilol 6. Expect improvement in GFR in <72 hr Status: Acute Priority: High Comment: Fixed heart rate of 60/min and excessive diuresis and ACEi = drop in renal perfusion per Starling's law. Resusitation with NS to restore BP and ultimately cardiac output. (2) Chronic systolic CHF (congestive heart failure), NYHA class 2 1. Hold B-Yamilex until back up rate can be ensured with ppm or shorter acting B-yamilex like carvedilol 2. Restart ACEi and aldosterone antagonist once hemodynamics better 3. Probably needs less loop diuretic Status: Chronic Priority: High Comment: Cardiac output limited by bradycardia (3) Symptomatic sinus bradycardia Hold B-Yamilex Check TSH Status: Chronic Priority: High Comment: Needs yearly eye exam. 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
[2019-03-10] MEDS ORDERED: NITROGLYCERIN 0.4 MG TAB.SUBL SL PRN (17:56)
[2019-03-10] MEDS ORDERED: clonazePAM 1 MG TABLET PO PRN (17:56)
[2019-03-10] MEDS: busPIRone 5 MG TABLET PO SCH (20:52)
[2019-03-10] MEDS: DOCUSATE SODIUM 100 MG CAPSULE PO SCH (20:53)
[2019-03-10] MEDS: HEPARIN 5,000 UNIT/ML VIAL SQ SCH (20:53)
[2019-03-10] MEDS: 0.9 % SODIUM CHLORIDE 10 ML SYRINGE IV SCH (20:54)
[2019-03-10] MEDS ORDERED: MELATONIN 3 MG TABLET PO SCH (21:00)
[2019-03-10] MEDS ORDERED: ATORVASTATIN 20 MG TABLET PO SCH (21:00)
[2019-03-11 02:15] LABS: Hemoglobin A1C 9.6 % HGB (4.0-6.0)
[2019-03-11 05:33] LABS: Basophils # (Auto) 0 K/mcL (0.0-0.3); Basophils % (Auto) 0.4 % (0.0-2.0); Eosinophils # (Auto) 0.3 K/mcL (0.0-0.7); Eosinophils % (Auto) 4.1 % (0.0-7.0); Hematocrit 42.5 % (41.0-55.0); Hemoglobin 14.4 g/dL (13.5-16.5); Lymphocytes # (Auto) 2.6 K/mcL (1.5-4.8); Lymphocytes % (Auto) 33.6 % (15.5-49.0); Mean Cell Volume 92.1 fL (80.0-100.0); Mean Corpuscular HGB Conc 33.8 g/dL (31.0-36.0); Mean Platelet Volume 9.8 fL (7.4-10.4); Monocytes # (Auto) 0.8 K/mcL (0.1-0.9); Monocytes % (Auto) 9.9 % (1.0-12.0); Platelet Count 134 K/mcL (140-440); RBC 4.62 M/mcL (4.50-5.90); Red Cell Distribution Width 13.3 % (11.5-14.5); WBC 7.8 K/mcL (4.5-11.0)
[2019-03-11] MEDS: 0.9 % SODIUM CHLORIDE 10 ML SYRINGE IV SCH ×3 (05:53→23:50)
[2019-03-11 06:08] LABS: ALT/SGPT 29 U/l (0-40); AST/SGOT 20 U/l (0-37); Albumin 3.8 gm/dL (3.2-5.2); Albumin/Globulin Ratio 1.4 (1.0-2.3); Alkaline Phosphatase 102 U/L (39-117); Bilirubin,Direct < 0.2 mg/dL (0.0-0.3); Bilirubin,Total 0.3 mg/dL (0.0-1.0); Blood Urea Nitrogen 63 mg/dl (8-23); Calcium 8.9 mg/dl (8.6-10.4); Carbon Dioxide 19 mmol/L (22-30); Chloride 107 mmol/L (96-108); Globulin 2.8 gm/dL (2.2-3.7); Glomerular Filtration Rate 42; Glucose 157 mg/dL (70-105); Lactate Dehydrogenase 264 U/L (94-250); Magnesium 2.1 mg/dL (1.6-2.5); Phosphorous 4.1 mg/dL (2.7-4.5); Potassium 4.7 mmol/L (3.3-5.1); Sodium 138 mmol/L (133-145); Triglycerides 164 mg/dl (<150); Uric Acid 6.9 mg/dL (2.5-8.0)
--- NOTE | 2019-03-11 07:28 | Internal Med Progress Note ---
Medical - PN: Subj Patient information: Note initiated : 03/11/19 at 7:26 am Service Date, if different from initiated Date: [] Patient: Sumit Baumann 63 y/o M admitted on 03/10/19 for acute renal failure, not feeling well, mild SOB. Chief Complaint: [] Interval history: Mr. Baumann is a 63 year old M Resents the ED sent in by his primary care provider for elevated BUN/creatinine and weakness. Patient states past couple weeks he has been progressively weak and especially the past few days feels like he hardly get up he is exhausted after walking 15 feet has lightheadedness headache. Has some stomach queasiness almost the nausea. No vomiting. No chest pain. No fevers or chills or diarrhea. States he tries to drink a lot 2-3 propel bottles a day plus water. He states his blood pressure typically runs 100/?. But yesterday said his blood pressure was running 60/40. He has chronic dyspnea but worse over the past couple days. He had a defibrillator placed several weeks at [facility]. The only medication change she notes over the past 2 months his lisinopril from 20-30. Also takes spironolactone and furosemide as well as bisoprolol. In the ED initial blood pressure was 162 lowest blood pressure was 82/60. Start IV fluid hydration on arrival prison librarian was contacted. Patient's creatinine was 2.1. Lactate proBNP and troponin were okay and chest x-ray unremarkable. 03/11 Poor sleep. He says he gets anxious in the hospital. Received anxiety medication last night did better. No overnight events or new complaints. Function improving. Review of Systems: denies headache/fever/chills/nausea/vomiting/chest or abdominal pain/cough/dyspnea/diarrhea. Otherwise see above. - Constitutional Vitals: Vital Signs Temp Pulse Resp BP Pulse Ox 97.4 F 52 L 17 112/65 97 03/11/19 04:04 03/11/19 07:01 03/11/19 07:01 03/11/19 07:01 03/11/19 07:01 Period Temp Pulse Resp BP Sys/Rankin Pulse Ox Last 24 Hr 97.2 F-98.4 F 52-73 9-26 72-145/44-107 91-100 Intake and Output 03/10/19 03/11/19 03/11/19 21:59 05:59 13:59 Intake Total 1240 0 Output Total 1120 300 Balance 120 -300 Weight 82.1 kg Intake & Output: Intake & Output 03/10/19 03/11/19 03/11/19 21:59 05:59 13:59 Intake Total 1240 0 Output Total 1120 300 Balance 120 -300 Weight 82.1 kg Intake: IV 1000 Sodium Chloride 0.9% 1,000 ml @ 1000 250 mls/hr IV .Q4H ONE Rx#: [id number] Oral 240 0 Output: Void Amount 1120 300 Other: Urine Appearance Clear Clear Clear Urine Color Bright Yellow Bright Yellow Bright Yellow Urine Odor Normal Normal Exam: General: Alert, Awake, No acute Distress Eyes/N/T: EOMI, Head/Neck: neck supple, CV: Mildly bradycardic but regular, No murmurs, Pulm: Clear b/l, no wheezing/rhonchi/rales Abd: soft, nontender, +BS x4 Ext: no clubbing/cyanosis/edema Neuro: Alert, no focal deficits, moves all extremities, Skin: warm/dry Medical - PN: Obj Da - Labs CBC & Chem 7: 03/11/19 03:40 03/11/19 03:40 Labs: Abnormal Lab Results 03/11/19 03/11/19 03/10/19 03:40 03:40 13:17 Plt Count 134 L Carbon Dioxide 19 L POC Total CO2 Anion Gap POC BUN BUN 63 H Creatinine 1.7 H POC Creatinine Glucose 157 H POC Glucose Hemoglobin A1c 9.6 H Lactate Dehydrogenase 264 H NT-Pro-B Natriuret Pep Triglycerides 164 H 03/10/19 03/10/19 13:17 13:17 Plt Count Carbon Dioxide 18 L POC Total CO2 20 L Anion Gap 17.0 H POC BUN 77 H BUN 73 H Creatinine 2.1 H POC Creatinine 2.1 H Glucose 254 H POC Glucose 251 H Hemoglobin A1c Lactate Dehydrogenase NT-Pro-B Natriuret Pep 395.9 H Triglycerides Meds: Medications Acetaminophen (Tylenol) 650 mg PO Q6HP PRN PRN Reason: PAIN/FEVER > 101 Albuterol/Ipratropium (Duoneb) 3 ml NEB Q4HP PRN PRN Reason: Shortness Of Breath Aspirin (Aspirin) 81 mg PO DAILY [facility] Atorvastatin Calcium (Lipitor) 80 mg PO HS [facility] Last Admin: 03/10/19 20:52 Dose: 80 mg Documented by: Buspirone HCl (Buspar) 5 mg PO BID [facility] Last Admin: 03/10/19 20:52 Dose: 5 mg Documented by: Clonazepam (Klonopin) 1 mg PO BIDP PRN PRN Reason: anxiety Last Admin: 03/10/19 22:57 Dose: 1 mg Documented by: Clopidogrel Bisulfate (Plavix) 75 mg PO QDAY [facility] Dextrose (Dextrose 50%) 0 ml IV UD PRN PRN Reason: Hypoglycemia Diagnostic Test (Pha) (Accu-Chek) 1 each FS ACHS [facility] Last Admin: 03/10/19 20:53 Dose: 1 each Documented by: Docusate Sodium (Colace) 100 mg PO BID [facility] Last Admin: 03/10/19 20:53 Dose: 100 mg Documented by: Glucose (Insta-Glucose) 15 gm PO PRN PRN PRN Reason: Hypoglycemia Heparin Sodium (Porcine) (Heparin) 5,000 unit SQ Q12 [facility] Last Admin: 03/10/19 20:53 Dose: 5,000 unit Documented by: Potassium Chloride 40 meq/ (Dextrose) 520 mls @ 130 mls/hr IV UD PRN PRN Reason: Potassium < 3 Magnesium Sulfate (Magnesium Sulfate) 2 gm in 50 mls @ 50 mls/hr IV UD PRN PRN Reason: Magnesium </= 1.6 Sodium Chloride (Sodium Chloride 0.9%) 1,000 mls @ 60 mls/hr IV .[id number] [facility] Stop: 03/12/19 02:15 Last Admin: 03/10/19 17:06 Dose: 60 mls/hr Documented by: Insulin Glargine (Lantus) 30 unit SQ DAILY [facility] Insulin Human Lispro (Humalog) 0 unit SQ ACHS [facility]; Protocol Last Admin: 03/10/19 20:53 Dose: 10 unit Documented by: Lactulose (Cephulac) 10 gm PO DAILYP PRN PRN Reason: Constipation Melatonin (Melatonin 3mg Tablet) 6 mg PO HS [facility] Last Admin: 03/10/19 20:53 Dose: 6 mg Documented by: Nitroglycerin (Nitrostat) 0.4 mg SL Q5MIN PRN PRN Reason: chest pain Ondansetron HCl (Zofran) 4 mg IV Q4HP PRN PRN Reason: Nausea And Vomiting Polyethylene Glycol (Miralax) 17 gm PO DAILYP PRN PRN Reason: Constipation Potassium Chloride (Kdur) 40 meq PO UD PRN PRN Reason: Potssium is 3-3.5 Potassium Chloride (Kdur) 40 meq PO UD PRN PRN Reason: Potassium < 3 Prochlorperazine (Compazine) 10 mg IV Q6HP PRN PRN Reason: Nausea And Vomiting Last Admin: 03/10/19 22:31 Dose: 10 mg Documented by: Senna (Senokot) 2 tab PO HSP PRN PRN Reason: Constipation Sodium Chloride (Saline Flush) 10 ml IV Q8 [facility] Last Admin: 03/11/19 05:53 Dose: Not Given Documented by: Vitamin D (Vitamin D3) 2,000 unit PO DAILY [facility] Medical - PN: A/P - Time Spent With Patient Total time spent is greater than 50% in coordination of care (as documented) at patient's floor/unit and/or counseling patient: - Narrative A/P Narrative: A: *NASIR on CKD: 2/2 medications -improving with IVF *Hypotension: 2/2 meds *Volume depletion: *Gen weakness: 2/2 above *DM w/hyperglycemia: A1c 9.6 *HTN/HLD: home med bisoprolol 5mg, lisinopril 30, lasix 40, aldactone 25 *CAD w/Stents & CABGx6: follows with Drs. 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%, grade II diastolic), diminished RV systolic fxn: -recent AICD place several weeks ago *Tobacco abuse *Anxiety: *COPD(not on home O2) * P: -stop IVF's -monitor fluid balance closely -Nephrology following -will decrease bisoprolol to 2.5mg when restarted, Nephro started alternative ACEI -hold diuretics and decrease upon d/c -cont ASA/Plavix/Statin -SSI and basal insulin - -Smoking cessation counseling -ppx: Heparin full Code Medical - PN: Qual - VTE Deep Vein Thrombosis/Pulmonary Embolism Present on Admission: No
[2019-03-11] MEDS: busPIRone 5 MG TABLET PO SCH ×2 (08:54→20:34)
[2019-03-11] MEDS: INSULIN LISPRO 1 UNIT/0.01 ML UNIT SQ SCH ×4 (08:54→20:57)
[2019-03-11] MEDS: HEPARIN 5,000 UNIT/ML VIAL SQ SCH ×2 (08:54→20:35)
[2019-03-11] MEDS: DOCUSATE SODIUM 100 MG CAPSULE PO SCH ×2 (08:55→20:34)
[2019-03-11] MEDS ORDERED: CAPTOPRIL 12.5 MG TABLET PO SCH (09:00)
[2019-03-11] MEDS ORDERED: INSULIN GLARGINE, HUMAN 1 UNIT/0.01 ML SQ SCH (09:00)
[2019-03-11] MEDS ORDERED: ASPIRIN 81 MG TAB.CHEW PO SCH (09:00)
[2019-03-11] MEDS ORDERED: BASAGLAR U SQ SCH (09:00)
[2019-03-11] MEDS ORDERED: VITAMIN D3 1,000 UNIT TABLET PO SCH (09:00)
[2019-03-11] MEDS ORDERED: CLOPIDOGREL 75 MG TABLET PO SCH (09:00)
[2019-03-11] MEDS ORDERED: LACTULOSE 20 GM/30 ML ORAL.SOL PO PRN (09:18)
[2019-03-11] MEDS ORDERED: NITROGLYCERIN 0.4 MG TAB.SUBL SL PRN (09:18)
[2019-03-11] MEDS ORDERED: DEXTROSE 31 GM ORAL.SUSP PO PRN (09:18)
[2019-03-11] MEDS ORDERED: ONDANSETRON 4 MG/2 ML VIAL IV PRN (09:18)
[2019-03-11] MEDS ORDERED: SENNOSIDES 1 TABLET PO PRN (09:18)
[2019-03-11] MEDS ORDERED: ACETAMINOPHEN 325 MG TABLET PO PRN (09:18)
[2019-03-11] MEDS ORDERED: POTASSIUM CHLORIDE 20 MEQ TABLET PO PRN ×2 (09:18)
[2019-03-11] MEDS ORDERED: MAGNESIUM SULFATE 2 GM/50 ML BAG IV PRN (09:18)
[2019-03-11] MEDS ORDERED: POLYETHYLENE GLYCOL 3350 17 GM PACKET PO PRN (09:18)
[2019-03-11] MEDS ORDERED: POTASSIUM CHLORIDE 40 MEQ in DEXTROSE 5% IN WATER 500 ML IV PRN (09:18)
[2019-03-11] MEDS ORDERED: DEXTROSE 50% 50 ML VIAL IV PRN (09:18)
[2019-03-11] MEDS ORDERED: PROCHLORPERAZINE 10 MG/2 ML VIAL IV PRN (09:18)
[2019-03-11] MEDS ORDERED: clonazePAM 1 MG TABLET PO PRN (09:18)
[2019-03-11] MEDS ORDERED: IPRATROPIUM/ALBUTEROL 3 ML AMPUL.NEB NEB PRN (09:18)
--- NOTE | 2019-03-11 11:22 | Discharge Summary ---
Medical - DS: Prov Patient information: Note initiated : 03/11/19 at 11:18 am Service Date, if different from initiated Date: [] Patient: Sumit Baumann 63 y/o M admitted on 03/10/19 for acute renal failure, not feeling well, mild SOB. Chief Complaint: [] Date of admission: 03/10/19 16:33 Discharge date: 03/12/19 Primary care physician: Aaron Anderson M.D., F.A.A.F.P. Consults: 03/10/19 Consult to Physician [CONS] Stat Comment: Consulting Provider: Wilfredo Blake Reason For Exam: Physician to Consult 03/10/19 16:56 Consult to Physician [CONS] Routine Comment: Consulting Provider: Luis Thomas Reason For Exam: Physician to Consult Medical - DS: Meds - Discharge Medications Prescriptions: Bisoprolol Fumarate 2.5 mg PO DAILY #1 tab Captopril [Capoten] 6.25 mg PO TID #40 tab Spironolactone 12.5 mg PO QDAY #1 tab Active and Home Medications: Home Medications aspirin 81 mg tablet,delayed release 81 mg PO QDAY 05/27/16 [History Confirmed 03/10/19 Last Taken Unknown] bisoprolol fumarate 5 mg tablet 10 mg PO QDAY #120 tab 08/15/16 [Rx Confirmed 03/10/19 Last Taken Unknown] nitroglycerin 0.4 mg sublingual tablet 0.4 mg SUBLINGUAL Q5MIN PRN #100 tab 08/15/16 [Rx Confirmed 03/11/19 Last Taken Unknown] glucagon (human recombinant) 1 mg injection kit 1 mg SUB-Q ONCE PRN #1 each 07/14/17 [Rx Confirmed 03/11/19 Last Taken Unknown] clopidogrel 75 mg tablet 75 mg PO QDAY 03/03/18 [History Confirmed 03/10/19 Last Taken Unknown] atorvastatin 80 mg tablet 80 mg PO QDAY #90 tab 03/09/18 [Rx Confirmed 03/10/19 Last Taken Unknown] furosemide 40 mg tablet 40 mg PO QDAY #60 tab 05/01/18 [Rx Confirmed 03/10/19 Last Taken Unknown] ezetimibe 10 mg tablet 10 mg PO QDAY #30 tab 06/04/18 [Rx Confirmed 03/10/19 Last Taken Unknown] clonazepam 1 mg tablet 1 mg PO BID PRN #45 tab 12/08/18 [Rx Confirmed 03/10/19 Last Taken Unknown] cholecalciferol (vitamin D3) 2,000 unit capsule 2,000 unit PO QDAY #90 cap 02/19/19 [Rx Confirmed 03/10/19 Last Taken Unknown] spironolactone 25 mg tablet 25 mg PO QDAY tab 02/19/19 [History Confirmed 03/11/19 Last Taken Unknown] Basaglar Kwikpen U-100 30 units SQ DAILY 03/10/19 [History Confirmed 03/10/19 Last Taken Unknown] buspirone 5 mg tablet 5 mg PO BID #60 tab 03/10/19 [Rx Confirmed 03/10/19 Last Taken Unknown] Blood Sugar Diagnostic [Glucose Test Strip] 1 each .ROUTE TID 03/11/19 [History Confirmed 03/11/19 Last Taken Unknown] Insulin Aspart [Novolog Flexpen] 4 units SQ TID 03/11/19 [History Confirmed 03/11/19 Last Taken Unknown] Pen Needle, Diabetic [Bd Ultra-Fine Pen Needle] 1 each SQ UD 03/11/19 [History Confirmed 03/11/19 Last Taken Unknown] Lisinopril 30mg Home Medications aspirin 81 mg tablet,delayed release 81 mg PO QDAY 05/27/16 [History Confirmed 03/10/19 Last Taken Unknown] nitroglycerin 0.4 mg sublingual tablet 0.4 mg SUBLINGUAL Q5MIN PRN #100 tab 08/15/16 [Rx Confirmed 03/11/19 Last Taken Unknown] glucagon (human recombinant) 1 mg injection kit 1 mg SUB-Q ONCE PRN #1 each 07/14/17 [Rx Confirmed 03/11/19 Last Taken Unknown] clopidogrel 75 mg tablet 75 mg PO QDAY 03/03/18 [History Confirmed 03/10/19 Last Taken Unknown] atorvastatin 80 mg tablet 80 mg PO QDAY #90 tab 03/09/18 [Rx Confirmed 03/10/19 Last Taken Unknown] furosemide 40 mg tablet 40 mg PO QDAY #60 tab 05/01/18 [Rx Confirmed 03/10/19 Last Taken Unknown] ezetimibe 10 mg tablet 10 mg PO QDAY #30 tab 06/04/18 [Rx Confirmed 03/10/19 Last Taken Unknown] clonazepam 1 mg tablet 1 mg PO BID PRN #45 tab 12/08/18 [Rx Confirmed 03/10/19 Last Taken Unknown] cholecalciferol (vitamin D3) 2,000 unit capsule 2,000 unit PO QDAY #90 cap 02/19/19 [Rx Confirmed 03/10/19 Last Taken Unknown] Basaglar Kwikpen U-100 30 units SQ DAILY 03/10/19 [History Confirmed 03/10/19 Last Taken Unknown] buspirone 5 mg tablet 5 mg PO BID #60 tab 03/10/19 [Rx Confirmed 03/10/19 Last Taken Unknown] Bisoprolol Fumarate 2.5 mg PO DAILY #1 tablet 03/11/19 [Rx Last Taken Unknown] Blood Sugar Diagnostic [Glucose Test Strip] 1 each .ROUTE TID 03/11/19 [History Confirmed 03/11/19 Last Taken Unknown] Captopril [Capoten] 6.25 mg PO TID #40 tablet 03/11/19 [Rx Last Taken Unknown] Insulin Aspart [Novolog Flexpen] 4 units SQ TID 03/11/19 [History Confirmed 03/11/19 Last Taken Unknown] Pen Needle, Diabetic [Ultra-Fine Short Pen Needle] 1 each SQ UD 03/11/19 [History Confirmed 03/11/19 Last Taken Unknown] Spironolactone 12.5 mg PO QDAY #1 tab 03/11/19 [Rx Last Taken Unknown] Medical - DS: Hosp Hospital course: Mr. Baumann is a 63 year old M Mr. Baumann is a 63 year old M Resents the ED sent in by his primary care provider for elevated BUN/creatinine and weakness. Patient states past couple weeks he has been progressively weak and especially the past few days feels like he hardly get up he is exhausted after walking 15 feet has lightheadedness headache. Has some stomach queasiness almost the nausea. No vomiting. No chest pain. No fevers or chills or diarrhea. States he tries to drink a lot 2-3 propel bottles a day plus water. He states his blood pressure typically runs 100/?. But yesterday said his blood pressure was running 60/40. He has chronic dyspnea but worse over the past couple days. He had a defibrillator placed several weeks at [facility]. The only medication change she notes over the past 2 months his lisinopril from 20-30. Also takes spironolactone and furosemide as well as bisoprolol. In the ED initial blood pressure was 162 lowest blood pressure was 82/60. Start IV fluid hydration on arrival clinical academic allergist was contacted. Patient's creatinine was 2.1. Lactate proBNP and troponin were okay and chest x-ray unremarkable. 03/11 Poor sleep. He says he gets anxious in the hospital. Received anxiety med ication last night did better. No overnight events or new complaints. Function improving. 03/12 Doing well. No new complaints. No function improved. Stable for discharge Lisinopril changed to captopril per nephrology. I decreased his bisoprolol and Spironolactone. He is to monitor his blood pressure twice daily and keep a log and bring it to his physicians. A: *NASIR on CKD: 2/2 medications -improving with IVF *Hypotension: 2/2 meds *Volume depletion: *Gen weakness: 2/2 above *DM w/hyperglycemia: A1c 9.6 *HTN/HLD: home med bisoprolol 5mg, lisinopril 30, lasix 40, aldactone 25 *CAD w/Stents & CABGx6: follows with Drs. 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%, grade II diastolic), diminished RV systolic fxn: -recent AICD place several weeks ago *Tobacco abuse *Anxiety: *COPD(not on home O2) * P: -stop IVF's -monitor fluid balance closely -Nephrology following -will decrease bisoprolol to 2.5mg when restarted, Nephro started captopril in place of lisinopril -hold diuretics and decrease upon d/c -cont ASA/Plavix/Statin -SSI and basal insulin - -Smoking cessation counseling -ppx: Heparin full Code Discharge diagnosis: Acute kidney injury hypotension volume depletion generalized weakness diabe Secondary discharge diagnosis: Diabetes hypertension coronary artery disease ischemic heart myopathy tobacco abuse anxiety COPD - Time Spent with Patient Total time spent providing and/or coordinating discharge services: Greater than 30 minutes Medical - DS: Exam - Constitutional Vitals: Vital Signs Temp Pulse Pulse Resp BP BP Pulse Ox 03/11/19 08:12 97.8 F 54 L 14 115/59 98 03/11/19 07:01 52 L 17 112/65 97 03/11/19 06:02 57 L 23 H 129/103 95 07/11/19 05:17 62 16 128/76 96 03/11/19 04:04 97.4 F 18 107/74 97 03/11/19 03:01 56 L 127/64 97 03/11/19 02:01 57 L 103/64 93 03/11/19 02:00 66 18 93 03/11/19 01:01 102/68 03/11/19 00:59 98.4 F 55 L 127/70 97 03/10/19 23:52 57 L 18 96 03/10/19 23:41 97.8 F 55 L 18 120/76 97 03/10/19 23:29 97.8 F 65 20 120/76 99 03/10/19 23:02 63 18 120/76 98 03/10/19 22:58 97.5 F 17 120/76 98 03/10/19 22:10 66 18 100 03/10/19 22:01 98.4 F 64 15 99/67 97 03/10/19 21:02 66 20 114/87 95 03/10/19 20:54 66 14 123/76 95 03/10/19 20:47 97.5 F 73 17 123/76 98 03/10/19 20:03 68 14 108/71 94 03/10/19 20:01 97.7 F 20 108/71 03/10/19 20:00 69 22 97 03/10/19 19:04 63 26 H 101/60 96 03/10/19 19:02 60 20 101/60 91 03/10/19 18:33 61 22 125/73 96 03/10/19 18:32 61 22 116/103 97 03/10/19 18:30 97.5 F 58 L 21 125/73 95 03/10/19 17:05 97.2 F 22 145/58 97 03/10/19 16:52 97.2 F 66 16 142/107 97 03/10/19 16:33 19 98 03/10/19 16:32 97.5 F 53 L 12 105/56 95 03/10/19 16:30 53 L 12 95 03/10/19 16:25 56 L 10 L 95 03/10/19 16:16 105/56 03/10/19 16:01 14 122/68 03/10/19 15:45 14 117/83 97 03/10/19 15:31 96/57 97 03/10/19 15:23 21 108/77 99 03/10/19 15:16 54 L 20 72/44 96 03/10/19 15:01 55 L 17 104/63 94 03/10/19 14:46 58 L 23 H 104/66 93 03/10/19 14:41 58 L 18 99 03/10/19 14:36 65 16 98/62 93 03/10/19 14:31 60 23 H 82/64 91 03/10/19 14:24 61 9 L 94/55 96 03/10/19 14:04 62 12 93 03/10/19 14:01 63 13 95/65 95 03/10/19 13:46 60 26 H 113/71 96 03/10/19 13:31 67 21 104/67 96 03/10/19 13:25 61 21 126/80 95 03/10/19 13:02 97.5 F 60 18 100/62 96 Intake and Output 03/10/19 03/11/19 03/11/19 21:59 05:59 13:59 Intake Total 1240 1157 Output Total 1120 500 Balance 120 657 Intake: IV 1000 917 Sodium Chloride 0.9% 1,000 ml @ 1000 917 60 mls/hr IV .[id number] [facility] Rx#: [id number] Oral 240 240 Output: Void Amount 1120 500 Other: Meal Breakfast Percent of Meal Consumed 100% Feeding Ability Independent Urine Appearance Clear Clear Clear Urine Color Bright Yellow Bright Yellow Bright Yellow Urine Odor Normal Normal Weight 82.1 kg Medical - DS: Data Labs on day of discharge: Labs from last 24 hours 03/11/19 03/11/19 03/10/19 03:40 03:40 14:11 WBC 7.8 RBC 4.62 Hgb 14.4 Hct 42.5 POC Hct MCV 92.1 MCH 31.1 MCHC 33.8 RDW 13.3 Plt Count 134 L MPV 9.8 Gran % 52.0 Lymph % (Auto) 33.6 [place] % (Auto) 9.9 Eos % (Auto) 4.1 Baso % (Auto) 0.4 Gran # 4.1 Lymph # (Auto) 2.6 [place] # (Auto) 0.8 Eos # (Auto) 0.3 Baso # (Auto) 0 VBG Lactic Acid POC Sodium Sodium 138 POC Potassium Potassium 4.7 POC Chloride Chloride 107 Carbon Dioxide 19 L POC Total CO2 Anion Gap 12.0 POC BUN BUN 63 H Creatinine 1.7 H POC Creatinine GFR Calculation 42 Glucose 157 H POC Glucose Hemoglobin A1c Estim Average Glucose Uric Acid 6.9 Calcium 8.9 POC WB Ioniz Calcium Phosphorus 4.1 Magnesium 2.1 Total Bilirubin 0.3 Direct Bilirubin < 0.2 GGT 22 AST 20 ALT 29 Alkaline Phosphatase 102 Lactate Dehydrogenase 264 H Total Creatine Kinase CK-MB (CK-2) Myoglobin Troponin T NT-Pro-B Natriuret Pep Total Protein 6.6 Albumin 3.8 Globulin 2.8 Albumin/Globulin Ratio 1.4 Triglycerides 164 H Urine Color Straw Urine Appearance Clear Urine pH 6.0 Ur Specific [place] 1.010 Urine Protein Neg Urine Glucose (UA) Negative Urine Ketones Neg Urine Occult Blood Neg Urine Nitrate Neg Urine Bilirubin Neg Urine Urobilinogen Neg Ur Leukocyte Esterase Neg Urine RBC < 1 Urine WBC < 1 Ur Squamous Epith Cells < 1 Urine Bacteria 0 Hyaline Casts 1 Urine Mucus Few Ur Culture Indicated? No 03/10/19 03/10/19 03/10/19 13:37 13:17 13:17 WBC RBC Hgb Hct POC Hct MCV MCH MCHC RDW Plt Count MPV Gran % Lymph % (Auto) [place] % (Auto) Eos % (Auto) Baso % (Auto) Gran # Lymph # (Auto) [place] # (Auto) Eos # (Auto) Baso # (Auto) VBG Lactic Acid 0.8 POC Sodium Sodium POC Potassium Potassium POC Chloride Chloride Carbon Dioxide POC Total CO2 Anion Gap POC BUN BUN Creatinine POC Creatinine GFR Calculation Glucose POC Glucose Hemoglobin A1c 9.6 H Estim Average Glucose 229 Uric Acid Calcium POC WB Ioniz Calcium Phosphorus Magnesium Total Bilirubin Direct Bilirubin GGT AST ALT Alkaline Phosphatase Lactate Dehydrogenase Total Creatine Kinase CK-MB (CK-2) Myoglobin Troponin T NT-Pro-B Natriuret Pep 395.9 H Total Protein Albumin Globulin Albumin/Globulin Ratio Triglycerides Urine Color Urine Appearance Urine pH Ur Specific [place] Urine Protein Urine Glucose (UA) Urine Ketones Urine Occult Blood Urine Nitrate Urine Bilirubin Urine Urobilinogen Ur Leukocyte Esterase Urine RBC Urine WBC Ur Squamous Epith Cells Urine Bacteria Hyaline Casts Urine Mucus Ur Culture Indicated? 03/10/19 03/10/19 03/10/19 13:17 13:17 13:17 WBC 8.2 RBC 4.90 Hgb 15.0 Hct 45.0 POC Hct 44.0 MCV 91.8 MCH 30.7 MCHC 33.4 RDW 13.4 Plt Count 155 MPV 9.4 Gran % 54.8 Lymph % (Auto) 31.4 [place] % (Auto) 10.3 Eos % (Auto) 3.0 Baso % (Auto) 0.5 Gran # 4.5 Lymph # (Auto) 2.6 [place] # (Auto) 0.8 Eos # (Auto) 0.2 Baso # (Auto) 0 VBG Lactic Acid POC Sodium 135 Sodium 135 POC Potassium 4.7 Potassium 4.7 POC Chloride 104 Chloride 100 Carbon Dioxide 18 L POC Total CO2 20 L Anion Gap 17.0 H POC BUN 77 H BUN 73 H Creatinine 2.1 H POC Creatinine 2.1 H GFR Calculation 33 Glucose 254 H POC Glucose 251 H Hemoglobin A1c Estim Average Glucose Uric Acid Calcium 9.7 POC WB Ioniz Calcium 1.19 Phosphorus Magnesium Total Bilirubin 0.4 Direct Bilirubin GGT AST 14 ALT 23 Alkaline Phosphatase 109 Lactate Dehydrogenase Total Creatine Kinase 45 CK-MB (CK-2) 2.5 Myoglobin 33 Troponin T < 0.01 NT-Pro-B Natriuret Pep Total Protein 7.2 Albumin 4.3 Globulin 2.9 Albumin/Globulin Ratio 1.5 Triglycerides Urine Color Urine Appearance Urine pH Ur Specific [place] Urine Protein Urine Glucose (UA) Urine Ketones Urine Occult Blood Urine Nitrate Urine Bilirubin Urine Urobilinogen Ur Leukocyte Esterase Urine RBC Urine WBC Ur Squamous Epith Cells Urine Bacteria Hyaline Casts Urine Mucus Ur Culture Indicated? 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
--- NOTE | 2019-03-11 11:44 | Nephrology Progress Note ---
Subjective Patient information: Note initiated : 03/11/19 at 11:42 am Patient: Sumit Baumann 63 y/o M admitted on 03/10/19 for acute renal failure, not feeling well, mild SOB. Chief Complaint: Weakness Pertinent ROS: Weakness No edema No Szymanski No dysuria Objective - Vital Signs Vital signs: Vital Signs Temp Pulse Pulse Resp BP BP Pulse Ox 03/11/19 08:12 97.8 F 54 L 14 115/59 98 03/11/19 07:01 52 L 17 112/65 97 03/11/19 06:02 57 L 23 H 129/103 95 03/11/19 05:17 62 16 128/76 96 03/11/19 04:04 97.4 F 18 107/74 97 03/11/19 03:01 56 L 127/64 97 03/11/19 02:01 57 L 103/64 93 03/11/19 02:00 66 18 93 03/11/19 01:01 102/68 03/11/19 00:59 98.4 F 55 L 127/70 97 03/10/19 23:52 57 L 18 96 03/10/19 23:41 97.8 F 55 L 18 120/76 97 03/10/19 23:29 97.8 F 65 20 120/76 99 03/10/19 23:02 63 18 120/76 98 03/10/19 22:58 97.5 F 17 120/76 98 03/10/19 22:10 66 18 100 03/10/19 22:01 98.4 F 64 15 99/67 97 03/10/19 21:02 66 20 114/87 95 03/10/19 20:54 66 14 123/76 95 03/10/19 20:47 97.5 F 73 17 123/76 98 03/10/19 20:03 68 14 108/71 94 03/10/19 20:01 97.7 F 20 108/71 03/10/19 20:00 69 22 97 03/10/19 19:04 63 26 H 101/60 96 03/10/19 19:02 60 20 101/60 91 03/10/19 18:33 61 22 125/73 96 03/10/19 18:32 61 22 116/103 97 03/10/19 18:30 97.5 F 58 L 21 125/73 95 03/10/19 17:05 97.2 F 22 145/58 97 03/10/19 16:52 97.2 F 66 16 142/107 97 03/10/19 16:33 19 98 03/10/19 16:32 97.5 F 53 L 12 105/56 95 03/10/19 16:30 53 L 12 95 03/10/19 16:25 56 L 10 L 95 03/10/19 16:16 105/56 03/10/19 16:01 14 122/68 03/10/19 15:45 14 117/83 97 03/10/19 15:31 96/57 97 03/10/19 15:23 21 108/77 99 03/10/19 15:16 54 L 20 72/44 96 03/10/19 15:01 55 L 17 104/63 94 03/10/19 14:46 58 L 23 H 104/66 93 03/10/19 14:41 58 L 18 99 03/10/19 14:36 65 16 98/62 93 03/10/19 14:31 60 23 H 82/64 91 03/10/19 14:24 61 9 L 94/55 96 03/10/19 14:04 62 12 93 03/10/19 14:01 63 13 95/65 95 03/10/19 13:46 60 26 H 113/71 96 03/10/19 13:31 67 21 104/67 96 03/10/19 13:25 61 21 126/80 95 03/10/19 13:02 97.5 F 60 18 100/62 96 Intake and Output 03/10/19 03/11/19 03/11/19 21:59 05:59 13:59 Intake Total 1240 1157 Output Total 1120 500 Balance 120 657 Intake: IV 1000 917 Sodium Chloride 0.9% 1,000 ml @ 1000 917 60 mls/hr IV .[id number] [facility] Rx#: [id number] Oral 240 240 Output: Void Amount 1120 500 Other: Meal Breakfast Percent of Meal Consumed 100% Feeding Ability Independent Urine Appearance Clear Clear Clear Urine Color Bright Yellow Bright Yellow Bright Yellow Urine Odor Normal Normal Weight 181 lb Intake & Output: Intake & Output 03/10/19 03/11/19 03/11/19 21:59 05:59 13:59 Intake Total 1240 1157 Output Total 1120 500 Balance 120 657 Weight 181 lb Intake: IV 1000 917 Sodium Chloride 0.9% 1,000 ml @ 1000 917 60 mls/hr IV .[id number] [facility] Rx#: [id number] Oral 240 240 Output: Void Amount 1120 500 Other: Meal Breakfast Percent of Meal Consumed 100% Feeding Ability Independent Urine Appearance Clear Clear Clear Urine Color Bright Yellow Bright Yellow Bright Yellow Urine Odor Normal Normal - General Appearance General appearance: fatigue EENT: mucous membranes moist Neck: supple Respiratory: clear Cardiology: no edema Integumentary: warm and dry Neurologic: no focal deficit Musculoskeletal: no deformities Psychiatric: mood/affect appropriate, cooperative - Lab 03/11/19 03:40 03/11/19 03:40 Most recent lab results Calcium 8.9 mg/dl (8.6-10.4) 03/11/19 03:40 Phosphorus 4.1 mg/dL (2.7-4.5) 03/11/19 03:40 Magnesium 2.1 mg/dL (1.6-2.5) 03/11/19 03:40 Assessment and Plan (1) Acute on chronic renal failure Sumit Baumann is a [id number] male with chronic kidney disease stage 3, diabetes mellitus type 2 and hypertension admitted on 03/10/19. Acute kidney injury on chronic kidney disease stage 3 with metabolic acidosis associated with decreased renal perfusion due to hypotension and cardiac medications, present on arrival. Work up: Urinalysis on 03/10/19: Straw, Clear, pH 6.0, SG 1.010, protein negative, occult blood negative, leukocyte esterase negative, urine WBC <1. Previous work up: Labs on 02/15/19: Serum creatinine 1.1, eGFR 71 ml/min, potassium 4.6, CO2 21, calcium 9.5, albumin 4.1, phosphorus 3.4, magnesium 1.6, Vitamin D Total (25-H ydroxy) 16, PTH (intact) 34. Renal US on 06/12/18: Moderately echogenic kidneys compatible medical renal disease. Possible vague 1.3 cm mass superior pole of the right kidney. Suggest abdominal MRI. Mild prostate enlargement - 40 cc. Urinary bladder is distended with a 27% postvoid residual suggesting chronic bladder outlet narrowing. Labs on 04/22/18: Urinalysis yellow, clear, pH 6.0, SG 1.019, protein negative, occult blood negative, leukocyte esterase negative. Labs on 12/08/17: Serum creatinine 1.1, urinalysis straw, clear, pH 6.0, SG 1.008, protein negative, occult blood negative, leukocyte esterase negative, urine WBC none, random urine microalbumin/creatinine ratio 26.9 mg/g creatinine, anti-HCV Ab non reactive, ELIZABETH negative. Progress: Urine output: 1620 ml reported in the past 16 hours. Serum creatinine decreased from 2.1 to 1.7 in the past 16 hours. Metabolic acidosis, improved. No significant fluid overload. No uremic symptoms. Plan: Anticipate no hemodialysis need. Avoid NSAIDs, nephrotoxic medications and IV contrast. Status: Acute Priority: High Qualifiers: Acute renal failure type: unspecified Chronic kidney disease stage: stage 3 (moderate) Qualified Code(s): N17.9 - Acute kidney failure, unspecified; N18.3 - Chronic kidney disease, stage 3 (moderate)
[2019-03-11] MEDS: CAPTOPRIL 12.5 MG TABLET PO SCH ×2 (15:49→20:33)
[2019-03-11] MEDS ORDERED: MELATONIN 3 MG TABLET PO SCH (21:00)
[2019-03-11] MEDS ORDERED: ATORVASTATIN 20 MG TABLET PO SCH (21:00)
[2019-03-12] MEDS: 0.9 % SODIUM CHLORIDE 10 ML SYRINGE IV SCH (05:22)
[2019-03-12 06:10] LABS: Blood Urea Nitrogen 48 mg/dl (8-23); Calcium 9.1 mg/dl (8.6-10.4); Carbon Dioxide 20 mmol/L (22-30); Chloride 108 mmol/L (96-108); Glomerular Filtration Rate 64; Glucose 188 mg/dL (70-105); Potassium 4.9 mmol/L (3.3-5.1); Sodium 140 mmol/L (133-145)
--- NOTE | 2019-03-12 06:33 | Nephrology Progress Note ---
Subjective Patient information: Note initiated : 03/12/19 at 6:31 am Patient: Sumit Baumann 63 y/o M admitted on 03/10/19 for acute renal failure, not feeling well, mild SOB. Chief Complaint: Weakness Pertinent ROS: Weakness No edema No dysuria Objective - Vital Signs Vital signs: Vital Signs Temp Pulse Pulse Resp BP BP BP 03/12/19 03:53 97.8 F 61 16 110/65 03/11/19 22:57 98 F 68 16 116/72 03/11/19 18:57 98 F 74 16 132/63 03/11/19 15:35 97.5 F 61 18 120/50 03/11/19 11:35 97.8 F 60 16 118/72 03/11/19 08:12 97.8 F 54 L 14 115/59 03/11/19 07:01 52 L 17 112/65 Pulse Ox 03/12/19 03:53 95 03/11/19 22:57 95 03/11/19 18:57 93 03/11/19 15:35 97 03/11/19 11:35 96 03/11/19 08:12 98 03/11/19 07:01 97 Intake and Output 03/11/19 03/12/19 03/12/19 21:59 05:59 13:59 Intake Total 800 200 Output Total 275 Balance 525 200 Intake: Nourishment/Supplement quantity 240 (ml) Oral 560 200 Output: Void Amount 275 Other: Meal Nourishment/Supplement Nourishment/Supplement Percent of Meal Consumed 50% 100% Feeding Ability Independent Independent Nourishment/Supplement name glucerna # Voids 2 Weight 178 lb 8 oz Intake & Output: Intake & Output 03/11/19 03/12/19 03/12/19 21:59 05:59 13:59 Intake Total 800 200 Output Total 275 Balance 525 200 Weight 178 lb 8 oz Intake: Nourishment/Supplement quantity 240 (ml) Oral 560 200 Output: Void Amount 275 Other: Meal Nourishment/Supplement Nourishment/Supplement Percent of Meal Consumed 50% 100% Feeding Ability Independent Independent Nourishment/Supplement name glucerna # Voids 2 - General Appearance General appearance: fatigue EENT: mucous membranes moist Neck: supple Respiratory: clear Cardiology: no edema Gastrointestinal: no tenderness Integumentary: warm and dry Neurologic: no focal deficit, alert and oriented x3 Musculoskeletal: no deformities Psychiatric: mood/affect appropriate, cooperative - Lab 03/11/19 03:40 03/12/19 03:55 Most recent lab results Calcium 9.1 mg/dl (8.6-10.4) 03/12/19 03:55 Phosphorus 4.1 mg/dL (2.7-4.5) 03/11/19 03:40 Magnesium 2.1 mg/dL (1.6-2.5) 03/11/19 03:40 Assessment and Plan (1) Acute on chronic renal failure Sumit Baumann is a [id number] male with chronic kidney disease stage 3, diabetes mellitus type 2 and hypertension admitted on 03/10/19. Acute kidney injury on chronic kidney disease stage 3 with metabolic acidosis associated with decreased renal perfusion due to hypotension and cardiac medications, present on arrival. Work up: Urinalysis on 03/10/19: Straw, Clear, pH 6.0, SG 1.010, protein negative, occult blood negative, leukocyte esterase negative, urine WBC <1. Previous work up: Labs on 02/15/19: Serum creatinine 1.1, eGFR 71 ml/min, potassium 4.6, CO2 21, calcium 9.5, albumin 4.1, phosphorus 3.4, magnesium 1.6, Vitamin D Total (25- Hydroxy) 16, PTH (intact) 34. Renal US on 06/12/18: Moderately echogenic kidneys compatible medical renal disease. Possible vague 1.3 cm mass superior pole of the right kidney. Suggest abdominal MRI. Mild prostate enlargement - 40 cc. Urinary bladder is distended with a 27% postvoid residual suggesting chronic bladder outlet narrowing. Labs on 04/22/18: Urinalysis yellow, clear, pH 6.0, SG 1.019, protein negative, occult blood negative, leukocyte esterase negative. Labs on 12/08/17: Serum creatinine 1.1, urinalysis straw, clear, pH 6.0, SG 1.008, protein negative, occult blood negative, leukocyte esterase negative, urine WBC none, random urine microalbumin/creatinine ratio 26.9 mg/g creatinine, anti-HCV Ab non reactive, LEIZABETH negative. Progress: Urine output: 43064 ml reported in the past 24 hours. Serum creatinine decreased from 1.7 to 1.2 in the past 16 hours. Metabolic acidosis, improved. Plan: Anticipate no hemodialysis need. Avoid NSAIDs, nephrotoxic medications and IV contrast. Follow up with me next month. Status: Acute Priority: High Qualifiers: Acute renal failure type: unspecified Chronic kidney disease stage: stage 3 (moderate) Qualified Code(s): N17.9 - Acute kidney failure, unspecified; N18.3 - Chronic kidney disease, stage 3 (moderate)
[2019-03-12] MEDS ORDERED: ASPIRIN 81 MG TAB.CHEW PO SCH (09:00)
[2019-03-12] MEDS ORDERED: CLOPIDOGREL 75 MG TABLET PO SCH (09:00)
[2019-03-12] MEDS ORDERED: VITAMIN D3 1,000 UNIT TABLET PO SCH (09:00)
[2019-03-12] MEDS ORDERED: INSULIN GLARGINE, HUMAN 1 UNIT/0.01 ML SQ SCH (09:00)
[2019-03-12] MEDS: busPIRone 5 MG TABLET PO SCH (09:21)
[2019-03-12] MEDS: DOCUSATE SODIUM 100 MG CAPSULE PO SCH (09:21)
[2019-03-12] MEDS: CAPTOPRIL 12.5 MG TABLET PO SCH (09:22)
[2019-03-12] MEDS: HEPARIN 5,000 UNIT/ML VIAL SQ SCH (09:22)
[2019-03-12] MEDS: INSULIN LISPRO 1 UNIT/0.01 ML UNIT SQ SCH (09:23)
== END 2019-03-12 10:00 | disposition home or self-care (01) | DRG 683 ==
LOC: ED 13:01 → ICU 16:32 → MEDSUR 03-11 18:08
PROVIDERS: ADMIT Internal Medicine; ATTEND Internal Medicine